=== PATIENT | male | born 1965 | race Native Hawaiian/Other Pacific Islander ===

== ENCOUNTER 2022-03-22 11:43 | Emergency (ER) | payer SELFPAY ==
[~2022-03-22] VITALS: Ht 177.8 cm; Wt 77.1 kg
[2022-03-22 11:51] VITALS: BP 181/99
--- NOTE | 2022-03-22 11:54 | NUR ---
DR LOPEZ AT BEDSIDE EVALUATING PT
--- NOTE | 2022-03-22 11:58 | NUR ---
Patient does not wish to proceed with medical care recommended by DR LOPEZ. Patient given information related to possible complications, up to and including , which could occur as a result of leaving hospital at this time. Patient verbalizes understanding of risks involved leaving against medical advice. Patient has signed AMA form.
== END 2022-03-22 11:54 | disposition left against medical advice (07) ==
LOC: MED 11:43
DX: R41.82 Altered mental status, unspecified (principal); R56.9 Unspecified convulsions
CPT/HCPCS: 99283